=== PATIENT | male | born 1955 | race Caucasian/White ===

== ENCOUNTER 2024-06-29 20:41 | Emergency (ER) | payer MEDICARE ==
[2024-06-29] MEDS ORDERED: Lidocaine 1% PF 5 ML VIAL ONE (20:53)
[2024-06-29] MEDS ORDERED: Boostrix 0.5 ML (Tdap) VIAL (>/=7 yrs of age) ONE (20:54)
== END 2024-06-29 21:38 | disposition home or self-care (01) ==
LOC: BURERS 20:41
DX: S60.352A Superficial foreign body of left thumb, initial encounter (principal); Z23 Encounter for immunization; X58.XXXA Exposure to other specified factors, initial encounter
CPT/HCPCS: 20520; 90471; 90715